=== PATIENT | female | born 1975 | race Caucasian/White ===

== ENCOUNTER → 2018-01-31 | Day surgery (SDC) | payer OTHER ==
[~2018-01-31] MED LIST: ACETAMINOPHEN 1000 MG/100 ML 100 ML IV ONE; BACITRACIN IM FOR SOLN 50,000 UNIT VIAL ONE; BUPIVACAINE/EPINEPHRINE 0.25% PF 10 ML VIAL ONE; CIPR500T4 PO; DOCU1CAP39 PO; FLAG500T PO; GENTAMICIN SULFATE 80 MG/2 ML VIAL ONE; HYDR-3533 PO; LACTATED RINGER'S 1000 ML INJ 1,000 ML ONE; MIDAZOLAM HCL 2 MG/2 ML VIAL ONE; PROT40TA PO; TRAM50TA PO; ZOFR4TAB3 PO; ZOFR4TAB3 SL; ceFAZolin INJ 1,000 MG VIAL ONE
== END | disposition home or self-care (01) ==
LOC: ESDC 07:33
PROVIDERS: ATTEND Plastic Surgery
DX: Z41.1 Encounter for cosmetic surgery (principal); Z53.8 Procedure and treatment not carried out for other reasons
CPT/HCPCS: 99211; J0131; J0690; J7120; G0463; J1580; J2250

== ENCOUNTER → 2018-02-03 | Day surgery (SDC) | payer OTHER ==
[~2018-02-03] MED LIST changes: +BUPIVACAINE HCL PF 0.25% 30 ML VIAL ONE; -BUPIVACAINE/EPINEPHRINE 0.25% PF 10 ML VIAL ONE; +LIDOCAINE 1%/EPINEPHrine 1:100,000 SOLN 50 ML VIAL ONE; +MEPERIDINE HCL 25 MG/ML VIAL ONE; +ONDANSETRON HCL 4 MG/2 ML VIAL IV PUSH ONE; +PROPOFOL 200 MG/20 ML AMP IV ONE
--- NOTE | 2018-02-03 16:20 | TN ---
cc: Errol Sams MD DATE OF SURGERY: 02/03/2018 PREOPERATIVE DIAGNOSES: 1. Status post augmentation mastopexy, following infection and removal of left breast implant device with subsequent deformity. 2. Residual breast ptosis. PROCEDURES PERFORMED: Bilateral removal and replacement of implants, bilateral circumvertical mastopexy. SURGEON: Errol Sams MD, [facility] ANESTHESIA: LMA, general. I also utilized a total of 60 mL of 1% lidocaine with epinephrine mixed with 0.25% Marcaine in a 2:1 ratio. COMPLICATIONS: None. DRAINS: One 10 mm NICA drain to the left breast. TECHNIQUE, PLACEMENT: Placed both breast implants in the retropectoral plane. These being an [id number] Natrelle Inspira, serial number of the right breast implant device #[id number] and serial number of the left breast implant device [id number] again 470 cc Natrelle Inspira SRX. PROCEDURE IN DETAIL: She was properly consented and marked, appropriately anesthetized, the skin sterilized with Betadine solution, sterile draping applied. I proceeded to perform the application of the Tegaderm through the nipple-areolar complex. At this point, through an inferior vertical incision, the pocket was encountered. The implant was removed on the right side, finding that there was a surface weakness and I made the decision to replace this implant. Obviously it was a new 470 SRX. Lateral and inferior capsulorrhaphies were done with running locking silks. After that, a proceed utilizing no-touch technique, introduced the new implant, closed the wound in multiple layers utilizing 2-0 Monocryl suture in the breast parenchyma and Cb's fascia and dermis. At this point I addressed my attention to the left breast, through which the patient had lost the previous breast implant. In the same approach, I encountered significant scar which was properly removed and the new plane recreated in the retropectoral plane. With this, due to the release all of the scar, I left a 10 mm NICA drain, brought out through a separate stab wound and secured utilizing 2-0 Monocryl suture. From there, I proceeded and again approached once the pocket was recreated. The anchor showed the pectoralis major muscle was done and the scar released, performed certainly cultures. Both breast pockets had a copious antibiotic irrigation. With that, I proceeded and performed the introduction utilizing a no-touch technique of the breast implant on the left side. With this, I proceeded and performed the closure of the wounds in the usual manner of the breast parenchyma, Cb's fascia and dermis. Now, the patient was sat up in a tailor tack technique was utilized in order to establish the residual ptosis the patient had. This was temporarily anchored with surgical garland. The skin was marked, the garland removed. The skin was de-epithelialized leaving a nipple-areolar complex about 21 cm from the sternal notch, 42 mm to 45 mm areola diameter. This was anchored on the vertical T on the right side utilizing 2-0 Monocryl suture in the dermis and subcu and the NAC was brought out utilizing a pinwheel utilizing 2-0 PTFE, reinforced with 2-0 Quill. Where the left breast was closed on the vertical incision utilizing 2-0 Monocryl suture in the dermis and subcu and equal for the NAC was set at 42-45 mm areolar diameter utilizing the pinwheel technique as well, utilizing 2-O PTFE suture and reinforced with 2-0 Quill. The wounds were dressed thereafter with Prineo Dermabond, absorbent dressings and a snug brassiere. At the end of the procedure, good viability of tissue was noted in this case, no complication appreciated. The patient tolerated the procedure well. MD QUINTON Diggs/BENNETT , 03:37 PM , 04:19 PM
== END | disposition home or self-care (01) ==
LOC: ESDC 11:20
PROVIDERS: ATTEND Plastic Surgery
DX: Z41.1 Encounter for cosmetic surgery (principal)
CPT/HCPCS: 00400; 00402; 19316; 19325; 19328; 87070; 87205; C1789; J0131; J0690; J1580; J2175; J2250; J2405; J3010; J7120